=== PATIENT | female | born 1980 | race Caucasian/White ===

== ENCOUNTER 2017-01-04 18:57 | Emergency (ER) | payer BC ==
[2017-01-04 19:14] VITALS: BP 127/83; PULSE 97; TEMP 98.9; BMI 33.0
[2017-01-04] MEDS ORDERED: DEXAMETHASONE LIQUID 0.5 MG/5 ML 240 ML BULK BOTTLE PO ONE (19:58)
[2017-01-04] MEDS ORDERED: diphenhydrAMINE HCL 25 MG CAPSULE (FP) PO ONE ×2 (19:58→20:03)
--- NOTE | 2017-01-04 19:58 | PDOC ---
History of Present Illness - General Chief Complaint: Edema Stated Complaint: PAIN Time Seen by Provider: 01/04/17 19:27 - History of Present Illness Initial Comments: 01/04/17 19:58 CHIEF COMPLAINT: swollen R cheek HISTORY OF PRESENT ILLNESS: 36-year-old female with no past medical history presents to ED with swelling to the right cheek. Patient reports that it began yesterday and today it remained seen size, but when she woke up it was worse. Patient denies any difficulty breathing, shortness of breath, swelling of the throat, tongue, or neck. Patient denies any nausea, vomiting, diarrhea, or fever or chills. Patient reports that this happened once a few years ago and she was given antibiotics and Motrin and it went away 2 days after she took the medications. She states that this happened "right after my menstrual cycle" and that she just finished her menstrual cycle as well. She denies any change of . She denies any unusual food, sick contacts, or recent travel. PAST MEDICAL HISTORY: Denies past medical history FAMILY HISTORY: Denies SOCIAL HISTORY: Denies tobacco, alcohol, illicit drug use. SURGICAL HISTORY: Denies ALLERGIES: No known drug allergies REVIEW OF SYSTEMS General/Constitutional: Denies fever or chills. Denies weakness, weight change. HEENT: Swollen R cheek x 2 days. Denies change in vision. Denies ear pain or discharge. Denies sore throat. Cardiovascular: Denies chest pain or shortness of breath. Respiratory: Denies cough, wheezing, or hemoptysis. Gastrointestinal: Denies nausea, vomiting, diarrhea or constipation. Denies rectal bleeding. Genitourinary: Denies dysuria, frequency, or change in urination. Musculoskeletal: Denies joint or muscle swelling or pain. Denies neck or back pain. Skin and breasts: Denies rash or easy bruising. PHYSICAL EXAM General Appearance: Well-appearing, appropriately dressed. No apparent distress , no intoxication. HEENT: Edema to R cheek. No tenderness, no erythema, no discharge. No swelling to tongue, uvula, throat. No lymphadenopathy. EOMI, PERRLA, normal ENT inspection, normal voice, TMs normal, pharynx normal. No conjunctival pallor. No photophobia, scleral icterus. Neck: Supple. Trachea midline. No tenderness, rigidity, carotid bruit, stridor , lymphadenopathy, or thyromegaly. Respiratory/Chest: Lungs CTAB. No shortness of breath, chest tenderness, respiratory distress, accessory muscle use. No crackles, rales, rhonchi, stridor , wheezing, dullness Cardiovascular: RRR. S1, S2. No JVD, murmur, bradycardia, tachycardia. Vascular Pulses: Dorsalis-Pedis (R): 2+, Dorsalis-Pedis (L): 2+ Gastrointestinal/Abdominal: Normal bowel sounds. Abdomen soft, non-distended. No tenderness or rebound tenderness. No organomegaly, pulsatile mass, guarding , hernia, hepatomegaly, splenomegaly. Lymphatic: No adenopathy, tenderness. Musculoskeletal/Extremities: Normal inspection. FROM of all extremities, normal capillary refill. Pelvis Stable. No CVA tenderness. No tenderness to extremities, pedal edema, swelling, erythema or deformity. Integumentary: Appropriate color, dry, warm. No cyanosis, erythema, jaundice or rash Neurologic: teacher specialist II-XII intact. Fully oriented, alert. Appropriate mood/affect. Motor strength 5/5. No appreciable EOM palsy, facial droop or sensory deficit. 01/04/17 19:59 Past History - Past Medical History Allergies/Adverse Reactions: Allergies Allergy/AdvReac Type Severity Reaction Status Date / Time No Known Allergies Allergy Unverified 01/04/17 19:33 Home Medications: Ambulatory Orders NK [No Known Home Medication] 01/04/17 Other medical history: Pt denies - Suicide/Smoking/Psychosocial Hx Smoking History: Current every day smoker Have you smoked in the past 12 months: Yes Number of Cigarettes Smoked Daily: 1 Information on smoking cessation initiated: No Hx Alcohol Use: No Drug/Substance Use Hx: No Substance Use Type: None *Physical Exam - Vital Signs Last Vital Signs Temp Pulse Resp BP Pulse Ox 98.9 F 97 H 18 127/83 98 01/04/17 19:11 01/04/17 19:11 01/04/17 19:11 01/04/17 19:11 01/04/17 19:11 Medical Decision Making - Medical Decision Making 01/04/17 20:03 36-year-old female with no past medical history presents to ED with swelling to the right cheek. -Decadron 10 mg -Benadry 25 mg 01/04/17 20:54 Patient reassessed; at this time swelling of cheek is decreasing in size, patient states "I can feel my lips becoming less swollen." Will discharge to home with close f/u with PMD. Advised patient to f/u with account services coordinator for testing and of signs and symptoms for return to ER; patient verbalized understanding and agrees to plan. *DC/Admit/Observation/Transfer Diagnosis at time of Disposition: Allergic reaction Qualifiers: Encounter type: subsequent encounter Qualified Code(s): T78.40XD - Allergy, unspecified, subsequent encounter - Discharge Dispostion Disposition: HOME Condition at time of disposition: Improved Admit: No - Referrals Referrals: Connie Cisneros MD [Staff Physician] - - Patient Instructions Printed Discharge Instructions: DI for General Allergic Reactions Additional Instructions: As discussed, pleaes follow up with your primary care doctor and account services coordinator this week for further evaluation of the cause of this allergy. If you experience ANY swelling of the throat, tongue, uvula, neck, or experience any shortness of breath or difficulty breathing, or the swelling worsens, please return to the ER immediately.
[2017-01-04] MEDS ORDERED: DEXAMETHASONE SOD PHOSPHATE 10 MG/1 ML VIAL ONE (20:03)
== END 2017-01-04 21:00 | disposition home or self-care (01) ==
LOC: JER 18:57
DX: T78.40XA Allergy, unspecified, initial encounter (principal); X58.XXXA Exposure to other specified factors, initial encounter
CPT/HCPCS: 99282-25